=== PATIENT | male | born 1980 | race Caucasian/White ===

== ENCOUNTER 2019-03-15 18:39 | Emergency (ER) | payer OTHER ==
[2019-03-15] MEDS ORDERED: SODIUM CHLORIDE 0.9% 1000ML 1,000 ML IV SCH (19:00)
[2019-03-15] MEDS ORDERED: SODIUM CHLORIDE 0.9% 1000ML 1,000 ML IV ONE (19:00)
[2019-03-15 19:23] VITALS: O2SAT 96
[2019-03-15 19:38] LABS: BASOPHILS % (AUTO) 1 % (0-3); EOSINOPHILS % (AUTO) 1 % (0-9); HEMATOCRIT 53 % (39-53); HEMOGLOBIN 17.1 gm/dl (13.5-17.7); LYMPHOCYTES % (AUTO) 32.4 % (10-50); MEAN CORPUSCULAR HEMOGLOBIN 30.6 pg (27.0-32.0); MEAN CORPUSCULAR HGB CONC 32.2 gm/dl (32.0-36.0); MEAN CORPUSCULAR VOLUME 95 fL (80-100); NEUTROPHILS % (AUTO) 59.8 % (37-80)
[2019-03-15 19:48] LABS: AMPHETAMINES NEGATIVE (NEGATIVE); BARBITUATES NEGATIVE (NEGATIVE); BENZODIAZEPINES NEGATIVE (NEGATIVE); CANNABINOL(THC) NEGATIVE (NEGATIVE); COCAINE(COC) NEGATIVE (NEGATIVE); METHAMPHETAMINES NEGATIVE (NEGATIVE); OPIATES(OPI) NEGATIVE (NEGATIVE); OXYCODONE(OXY) NEGATIVE (NEGATIVE); PROPOXYPHENE(PPX) NEGATIVE (NEGATIVE)
[2019-03-15 19:58] VITALS: RESP 20
[2019-03-15 19:58] LABS: ALBUMIN 3.8 gm/dl (3.4-5.0); BILIRUBIN,TOTAL 0.3 mg/dl (0.2-1.0); CALCIUM 8.7 mg/dl (8.5-10.1); CARBON DIOXIDE 22.3 mEq/L (21-32); CREATININE 1.28 mg/dl (0.80-1.30); TOTAL PROTEIN 8.9 gm/dl (6.4-8.2)
[2019-03-15 20:00] VITALS: TEMP 98.2
[2019-03-15 20:01] LABS: ALCOHOL 0.373 gm/dl (0.000-0.08)
[2019-03-15] MEDS ORDERED: LIDOCAINE HCL 1% MDV 50 ML SOL SC ONE (20:21)
[2019-03-15] MEDS ORDERED: LIDOCAINE HCL 1% MPF 30 SOL ONE (20:22)
[2019-03-15 21:18] VITALS: BP 147/82; PULSE 108
== END 2019-03-15 21:05 | disposition home or self-care (01) | DRG 605 ==
LOC: ED 18:39
DX: S01.81XA Laceration without foreign body of other part of head, initial encounter (principal); W18.30XA Fall on same level, unspecified, initial encounter; R40.2412 Glasgow coma scale score 13-15, at arrival to emergency department; Y90.8 Blood alcohol level of 240 mg/100 ml or more
CPT/HCPCS: 12013; 70450; 71101; 80053; 80305; 80307; 85025; 96365; 99285; A6402; J2001